=== PATIENT | female | born 1990 | race African-American/Black ===

== ENCOUNTER 2019-10-03 14:18 | Emergency (ER) | payer SELFPAY ==
[2019-10-03 14:40] VITALS: BP 120/70; PULSE 101; RESP 20; TEMP 37.1; O2SAT 100
--- NOTE | 2019-10-03 15:08 | ED.GENADULT ---
HPI - General Adult General Chief complaint: Upper Respiratory Infection Stated complaint: Sore throat Time Seen by Provider: 10/03/19 15:09 Source: patient and RN notes reviewed Mode of arrival: ambulatory Limitations: no limitations History of Present Illness HPI narrative: This is a 29 years old female presented office for evaluation of sore throat for 2-day. Associated with left ear pain. No treatment prior to arrival. Related Data Allergies Allergy/AdvReac Type Severity Reaction Status Date / Time No Known Allergies Allergy Verified 10/03/19 14:56 Review of Systems Review of Systems: Narrative: CONSTITUTIONAL: Denies fever ENT: Denies rhinorrhea, congestion CARDIOVASCULAR: Denies chest pain RESPIRATORY: Denies cough GASTROINTESTINAL: Denies abdominal pain, nausea, vomiting, diarrhea. GENITOURINARY: Denies urinary symptoms or discharge SKIN: Denies rash MUSCULOSKELETAL: Denies acute back pain NEUROLOGIC: Denies lightheaded PMFSH Comments At time of signature, I agree with nursing past medical, surgical, social and family history. There is no relevant family history pertinent to the presenting complaint. Exam Narrative: Exam Narrative: GENERAL: This is a well-nourished, well-developed patient, in no apparent distress. EYES: Sclera clear/white. Vision is grossly intact. EARS: External ears normal, auditory canals clear and without drainage, TMs normal without perforation. Hearing grossly intact. NOSE: External nose normal with no obvious nasal discharge, nares without redness, no rhinorrhea. THROAT: Mucous membranes moist, posterior pharynx erythema and edamatous with tonsils 2+ exudative NECK: Neck supple, non-tender without lymphadenopathy, masses or thyromegaly. CARDIOVASCULAR: Regular rate and rhythm without murmurs, gallops, or rubs. RESPIRATORY: Clear to auscultation. Breath sounds equal bilaterally. No wheezes, rales, or rhonchi. GASTROINTESTINAL: Abdomen soft, non-tender, nondistended. Bowel sounds are active. SKIN: warm, intact with no suspicious lesions or rash, good texture and turgor. NEURO: awake, alert, and oriented to person, place and time. There were no obvious focal neurologic abnormalities. Steady gait [place] Coma Scale Eye Opening: Spontaneous 4 [place] Coma Scale Motor: Obeys Commands 6 [place] Coma Scale Verbal: Oriented 5 Course Vital Signs Vital signs: Vital Signs Temperature 98.8 F 10/03/19 14:40 Pulse Rate 101 H 10/03/19 14:40 Respiratory Rate 20 10/03/19 14:40 Blood Pressure 120/70 10/03/19 14:40 Pulse Oximetry 100 10/03/19 14:40 Temperature 98.8 F 10/03/19 14:40 Pulse Rate 101 H 10/03/19 14:40 Respiratory Rate 20 10/03/19 14:40 Blood Pressure 120/70 10/03/19 14:40 Pulse Oximetry 100 10/03/19 14:40 Medical Decision Making MDM Narrative Medical decision making narrative: Discharge instructions reviewed with patient, as well as provided in writing per nursing staff. The instructions also include specific and strict return/GO TO THE ER as well as f/u information. All questions have been answered, and the patient deny any further questions with discharge and discharge plan. Differential Diagnosis Differential Diagnosis: pneumonia, Allergic Rhinitis, Upper respiratory cough syndrome, Pharyngitis, Sinusitis, Bronchitis, otitis media, viral URI, Asthma/reactive airway disease, influenza Vital Signs Vital Signs: Vital Signs Temperature 98.8 F 10/03/19 14:40 Pulse Rate 101 H 10/03/19 14:40 Respiratory Rate 10/03/19 14:40 Blood Pressure 120/70 10/03/19 14:40 Pulse Oximetry 100 10/03/19 14:40 Temperature 98.8 F 10/03/19 14:40 Pulse Rate 101 H 10/03/19 14:40 Respiratory Rate 10/03/19 14:40 Blood Pressure 120/70 10/03/19 14:40 Pulse Oximetry 100 10/03/19 14:40 Lab Data Lab results reviewed: Yes I reviewed the patient's lab results. Critical Care Time Critical Care Time Critical Care Time: No
== END 2019-10-03 15:22 | disposition home or self-care (01) ==
PROVIDERS: Emergency Provider Nurse Practitioner
DX: J02.9 Acute pharyngitis, unspecified (principal)
CPT/HCPCS: 87081; 87880; 99203; G0463